=== PATIENT | male | born 1960 | race Caucasian/White ===

== ENCOUNTER 2024-04-03 09:32 | Outpatient (CLI) | payer BC, SELFPAY | END 2024-04-03 09:33 | disposition home or self-care (01) | PROVIDERS: Visit Provider Physician Assistant Medical | DX: Z00.00 Encounter for general adult medical examination without abnormal findings (principal); R73.03 Prediabetes; Z13.6 Encounter for screening for cardiovascular disorders; Z12.5 Encounter for screening for malignant neoplasm of prostate; Z13.0 Encounter for screening for diseases of the blood and blood-forming organs and certain disorders involving the immune mechanism; Z01.818 Encounter for other preprocedural examination | CPT/HCPCS: 80053; 80061; G0103 ==

== ENCOUNTER 2024-04-12 06:51 | Day surgery (SDC) | payer BC, SELFPAY ==
[2024-04-12] VITALS (16 sets, daily range): BP systolic 123–157; BP diastolic 78–106; PULSE 54–75; RESP 10–20; TEMP 36.1–37.1; O2SAT 91–97; BMI 33.9
--- NOTE | 2024-04-12 07:18 | W.PM.H&PU ---
History & Physical Update History & Physical Update H&P Reviewed and patient assessed: No changes noted
[2024-04-12] MEDS: SODIUM CHLORIDE 0.9 % (FLUSH) 10 ML SYRINGE IVF (07:42)
[2024-04-12] MEDS: 0.9 % SODIUM CHLORIDE 500 ML 500 ML 35 ML IV (08:10)
[2024-04-12] MEDS: MIDAZOLAM HCL 1 MG/ML inj IVP (09:00)
[2024-04-12] MEDS: fentaNYL 100 MCG/2 ML inj IVP (09:00)
--- NOTE | 2024-04-12 09:05 | SUR.PREOP ---
TIME?OUT:?854, left shoulder PT/RN/MDA?VERIFICATION?OF?SURGICAL?SITE,?PROCEDURE,?AND?CONSENT OBTAINED?PRIOR?TO?INVASIVE?PROCEDURE.
[2024-04-12] MEDS: CEFAZOLIN 2 GM in 0.9 % SODIUM CHLORIDE Mini-bag 100 ML IVPB (09:59)
--- NOTE | 2024-04-12 10:14 | P.NB_ITS ---
Nerve Block Nerve Block Time Seen by Provider: 09:00 Date Seen: 04/12/24 Type of block requested by surgeon for post-operative analgesia: supraclavicular Side: left Time out performed: Yes Verification of patient name: Yes Verification of date of : Yes Site marking: site marked Name of person performing procedure: Wes Continuous monitoring Was continuous monitoring of O2 sat, B/P, cardiac sonographer, recorded every 15 minutes?: Yes Procedure Checklist: sterile prep, needles and gloves Ultrasound guided. Images saved: Yes Medications given in 5ml increments after negative aspiration: Ropivicaine %: 0.5 mL: 20 Needle gauge: 22 Precedex (mcg): 25 Patient tolerated procedure well: Yes Block Charges Block Charge (with Pro Fee): Brachial Plexus Use of Ultrasound Machine for Block: Yes- US Guidance/pain block
--- NOTE | 2024-04-12 10:15 | W.ANESCHARGE ---
Anesthesia Charges Start Date/Time Anesthesia Start Date: 04/12/24 Anesthesia Start Time: 09:29 Stop Date/Time Anesthesia Stop Date: 04/12/24 Anesthesia Stop Time: 12:02
[2024-04-12] MEDS: EPINEPHrine 1 MG in SODIUM CHLORIDE IRRIG SOLUTION 3,000 ML 3001 MG IRRIGATION ×6 (10:30→11:35)
--- NOTE | 2024-04-12 12:13 | W.ANESCHARGE ---
Anesthesia Charges Start Date/Time Anesthesia Start Date: 04/12/24 Anesthesia Start Time: 09:29 Stop Date/Time Anesthesia Stop Date: 04/12/24 Anesthesia Stop Time: 12:02
--- NOTE | 2024-04-12 12:38 | SUR.PHASEI ---
patient met discharge criteria per anesthesia
[2024-04-12] MEDS: CALCIUM CARBONATE 500 MG CHEW PO (13:00)
--- NOTE | 2024-04-12 15:17 | P.ORPRC_ITS ---
Procedure Note Date of procedure: 04/12/24 Procedure: PREOPERATIVE DIAGNOSES: 1. Left shoulder rotator cuff tear - 3 tendon tear 2. Left shoulder AC joint arthrosis. 3. Left shoulder labral tearing. 4. Left shoulder low-grade partial-thickness long head biceps tear with subluxa tion out of the groove. 5. Left shoulder subacromial impingement syndrome. POSTOPERATIVE DIAGNOSES: 1. Left shoulder rotator cuff tear - full-thickness upper border subscapularis, full-thickness, full breadth supraspinatus and infraspinatus with retraction posteromedially. 2. Left shoulder labral tearing. 3. Left shoulder low-grade partial-thickness long head biceps tear. 4. Left shoulder subacromial impingement syndrome. NAME OF OPERATION: 1. Left shoulder arthroscopic rotator cuff repair - massive 3 tendon tear (* of note, 33% added difficulty of this case due to the massive tear nature which required increased time to mobilize the supraspinatus and infraspinatus, increased number of anchors, increased fluid utilization, and increased difficulty given the complexity of its tear.) 2. Left shoulder arthroscopic limited glenohumeral debridement 3. Left shoulder arthroscopic bursectomy, subacromial decompression/partial acromioplasty. SURGEON: Yuriy Bunch MD PRODUCT SALES REPRESENTATIVE: Juancarlos Toledo PA-C. Of note, a skilled assistant merchandise manager was critical for this case to aide in patient positioning, suture manipulation, arm positioning, instrument positioning, and closure. ANESTHESIA: General plus preoperative supraclavicular block. EBL: 25 mL IMPLANTS: Arthrex 4.75 mm BioComposite SwiveLock suture anchor (x1 standard; x2 knotless) Arthrex 5.5 mm BioComposite SwiveLock suture anchor (x2); Arthrex 2.6 mm knotless FiberTak RC (x1) COMPLICATIONS: None evident INDICATIONS: The patient is a pleasant, 63-year-old male who has experienced left shoulder pain that has been increasing in recent time. Physical exam and imaging were consistent with a rotator cuff tear. Given their findings, as well as the weakness and pain, and inadequate response to nonoperative management, recommendation was made for surgery. FINDINGS: Exam under anesthesia revealed stable shoulder with excellent range of motion. The diagnostic arthroscopy revealed healthy chondral surfaces of the glenohumeral joint. The Subscapularis tendon was torn from its upper border with mild retraction. The long head of the biceps tendon was overall intact wi thout significant tearing from the origin. It was located within the bicipital groove on today's shoulder arthroscopy. There was only low-grade partial- thickness tearing low down near the humeral articulation. The superior rotator cuff tendon was found to be torn full-thickness and full breadth with significant retraction posteromedially. It had significant adhesions initially and abundant bursitis making it difficult to identify proper tissue planes. The labrum was torn in the anterior and anterosuperior regions. No loose bodies were identified within the pouch or subscapularis recess. PROCEDURE: Following a thorough discussion of risks, benefits, and alternatives, consent was obtained and the left shoulder was marked. The patient was brought to the operating room and placed supine on the operating table. Induction of anesthesia was completed after preoperative supraclavicular block was administered in preop holding. Appropriate time out was performed identifying proper patient, site, and procedure. 2 g IV Ancef was administered within 1 hour of incision preoperatively. The left upper extremity was prepped and draped in the appropriate sterile fashion using ChloraPrep prep. This was after the patient was positioned in the beach chair with their head in neutral alignment and all bony prominences well padded. The shoulder was insufflated with 20mL of normal saline via an 18g spinal needle from a posterior approach. An 11 blade skin incision allowed a blunt trochar to be inserted and diagnostic arthroscopy to be performed with the findings as noted above. An anterior portal was established with an outside in technique. This allowed the probe to be inserted and confirm the diagnostic arthroscopic findings. The shaver was then inserted and allowed debridement of the anterior and superior labrum. The long head of biceps was felt to be in appropriate position and therefore needed no further treatment. Following this, the upper border subscapularis was repaired after debriding the lesser tuberosity with the shaver and [place] cautery. Subscapularis was captured in horizontal mattress fashion with a fiber tape suture. The tails were brought to a single anchor in the lesser tuberosity with excellent reapproximation of the subscap tendon and good excursion/tension. Thereafter, the subacromial space was entered. Here, a complete bursectomy and partial acromioplasty/subacromial decompression was performed with a combination of radiofrequency ablator, the shaver, and a 5.5 mm bur. Further inspection of the supraspinatus and infraspinatus rotator cuff was performed. This identified the tear as noted above. The margins of the tear were debrided, and the greater tuberosity was debrided with a combination of the apollo cautery, shaver, and bur on reverse setting. After gentle decortication, given the massive nature of this tear, it was felt that 3 medial row anchors and 2 lateral anchors would suffice for repair. To knotless 4.75 mm SwiveLock suture anchors were placed at the anterior medial and posterior medial portions. The central medial anchor was a 2.6 mm knotless FiberTak RC anchor. After placing all these anchors, the sutures were passed with a FiberLink at the respective portions of the retracted tear. The tear did have a tag stitch that allowed this traction to improve our understanding of its reapproximation. After passing the knotless mechanism suture from the anterior medial to the central medial anchor and the likewise from the central medial to the posterior medial anchor, we tentatively snowed that suture down. Thereafter, we took 1 of the FiberTape tails from each of those anchors and passed into a posterolateral row 5.5 mm SwiveLock suture anchor. The remaining FiberTape from each of those medial row anchor tails was then passed into an anterolateral 5.5 mm SwiveLock suture anchor. Excellent reapproximation of the rotator cuff to the greater tuberosity was achieved. Prior to anchor furniture delivery driver removal, the eyelet sutures were tugged on for each anchor and found that the anchor had excellent stability within the bone. The shoulder was placed through range of motion and found to be stable. The rotator cuff was re-probed and found to be stable. Instruments were removed. Excess fluid was drained, closure performed with 4-0 Monocryl and Steri-Strips. Dressings were applied. Sling was applied. The patient was awoken from anesthesia and transferred to the PACU in stable condition. A skilled assistant merchandise manager was critical for this case to aid in patient positioning, limb positioning, skill to manipulate arthroscopic instruments and camera, suture management, patient safety, and closure. * again, 33% added difficulty for this case due to the massive tear nature which required increased time to mobilize the supraspinatus and infraspinatus, increased number of anchors, increased fluid utilization, and increased complexity of suture management and portal placement given the massive tear size. PLAN: 1. Elbow, forearm, wrist and digit range of motion of operative extremity as tolerated. 2. Encouraged ice. 3. Oxycodone for pain as needed. 4. Sling at all times except for ROM and showering. 5. Follow up with PA visit in 1-2 weeks for wound check. Initiate physical therapy following that visit for passive range of motion at approximately 4-5 weeks postop. Initiate active assisted range of motion at 8 weeks.
== END 2024-04-12 14:03 | disposition home or self-care (01) ==
PROVIDERS: Visit Provider Orthopaedic Surgery Sports Medicine
PROC: (CPT 29805; principal; 2024-04-12 09:00)
DX: M75.122 Complete rotator cuff tear or rupture of left shoulder, not specified as traumatic (principal); M19.012 Primary osteoarthritis, left shoulder; S43.432A Superior glenoid labrum lesion of left shoulder, initial encounter; S46.112A Strain of muscle, fascia and tendon of long head of biceps, left arm, initial encounter; M75.42 Impingement syndrome of left shoulder; G89.18 Other acute postprocedural pain
CPT/HCPCS: 29827; 29826; 29822; 01630; 64415; 76942; A9270; C1713; J0171; J0690; J1100; J2250; J2371; J2405; J2704; J2710; J2795; J3010; J7030; L3670

== ENCOUNTER 2024-07-17 10:48 | Outpatient (CLI) | payer MEDICARE, BC, SELFPAY | END 2024-07-17 10:49 | disposition home or self-care (01) | PROVIDERS: PCP Physician Assistant Medical; Visit Provider Physician Assistant Medical | DX: R79.89 Other specified abnormal findings of blood chemistry (principal); R73.03 Prediabetes; E78.5 Hyperlipidemia, unspecified; E66.9 Obesity, unspecified; R97.20 Elevated prostate specific antigen [PSA]; Z12.5 Encounter for screening for malignant neoplasm of prostate | CPT/HCPCS: 80061; 80076; 86141; G0103 ==

== ENCOUNTER 2024-09-07 07:30 | Outpatient (RCR) | payer BC, MEDICARE, SELFPAY | END 2025-01-05 23:59 | disposition home or self-care (01) | PROVIDERS: Visit Provider Orthopaedic Surgery Sports Medicine | DX: Z48.89 Encounter for other specified surgical aftercare (principal); M25.512 Pain in left shoulder; Z51.89 Encounter for other specified aftercare | CPT/HCPCS: 97110; 97140; 97162 ==